=== PATIENT | female | born 2000 | race Caucasian/White ===

== ENCOUNTER → 2023-07-25 11:35 | Outpatient (CLI) | payer OTHER, SELFPAY ==
[2023-07-25 12:29] LABS: Add Manual Diff / Slide Review NO; Basophils Absolute Auto 0 /uL (0-100); Basophils Percent Auto 0.5 % (0-2); Eosinophils Absolute Auto 200 /uL (0-450); Eosinophils Percent Auto 3.1 % (2-4); Hematocrit 37.6 % (36-46); Hemoglobin 12.5 g/dL (12.0-16.0); Lymphocytes Absolute Auto 2400 /uL (1100-4500); Lymphocytes Percent Auto 33.1 % (25-40); Mean Corpuscular HGB Conc 33.2 % (30-36); Mean Corpuscular Hemoglobin 27.6 PG (26-34); Mean Corpuscular Volume 83.1 fL (80-100); Monocytes Absolute Auto 900 /uL (0-900); Monocytes Percent Auto 12.9 % (3-14); Neutrophils Absolute Auto 3600 /uL (1500-7000); Neutrophils Percent Auto 50.4 % (50-75); Platelet Count 230 X10^3/uL (150-400); Red Blood Cell Count 4.52 X10^6/uL (4.0-5.2); Red Cell Distribution Width 14.6 % (11.6-14.8); White Blood Cell Count 7.1 X10^3/uL (4.5-11.0)
[2023-07-25 12:52] LABS: Alanine Aminotransferase 13 IU/L (<35); Albumin 4.7 g/dL (3.5-5.0); Albumin Globulin Ratio 1.6 (1.0-2.8); Alkaline Phosphatase 50 U/L (38-126); Aspartate Aminotransferase 28 IU/L (14-36); Bilirubin Total 0.8 mg/dL (0.2-1.3); Blood Urea Nitrogen 11 mg/dL (7-17); Calcium 9.6 mg/dL (8.4-10.2); Carbon Dioxide 25 mmol/L (22-32); Chloride 106 mmol/L (98-107); Estimated Glomerular Filt Rate > 60 mL/min (>60); Globulin 2.9 g/dL (1.7-4.1); Glucose 93 mg/dL (70-100); HEMOLYSIS < 15 (0-50); Potassium 4.1 mmol/L (3.4-5.1); Sodium 137 mmol/L (137-145); Total Protein 7.6 g/dL (6.3-8.2)
[2023-07-25 12:53] LABS: HEMOLYSIS < 15 (0-50); Iron 124 ug/dL (37-170)
[2023-07-25 13:04] LABS: Percent Iron Saturation 29 % (15-50); Total Iron Binding Capacity 431 ug/dL (265-497); Transferrin 337 mg/dL (206-381)
[2023-07-25 13:25] LABS: TSH w/ Reflex to FT4 0.58 uIU/mL (0.47-4.68)
[2023-07-25 13:27] LABS: Ferritin 7 ng/mL (6-137)
[2023-07-25 13:59] LABS: Folate 15.7 ng/mL (2.76-20.0); Vitamin B12 859 pg/mL (239-931)
[2023-07-25 15:48] LABS: Vitamin D 25 Hydroxy (D3) 78.1 ng/mL (30.0-100.0)
== END ==
PROVIDERS: Family Provider Family Medicine; PCP Family Medicine; Referring Provider Family Medicine; Visit Provider Family Medicine
DX: R53.83 Other fatigue (principal); Z86.39 Personal history of other endocrine, nutritional and metabolic disease; Z78.9 Other specified health status; N94.2 Vaginismus; F32.9 Major depressive disorder, single episode, unspecified
CPT/HCPCS: 36415; 80053; 82306; 82607; 82728; 82746; 83540; 83550; 84443; 85025

== ENCOUNTER → 2023-09-30 16:47 | Outpatient (CLI) | payer OTHER, SELFPAY ==
[2023-09-30 18:37] LABS: Ferritin 15 ng/mL (6-137)
== END ==
PROVIDERS: Family Provider Family Medicine; PCP Family Medicine; Referring Provider Family Medicine; Visit Provider Family Medicine
DX: E61.1 Iron deficiency (principal)
CPT/HCPCS: 36415; 82728

== ENCOUNTER → 2024-01-13 15:03 | Outpatient (CLI) | payer BC, SELFPAY ==
[2024-01-13 16:32] LABS: HEMOLYSIS < 15 (0-50); Iron 109 ug/dL (37-170)
[2024-01-13 16:44] LABS: Percent Iron Saturation 38 % (15-50); Total Iron Binding Capacity 284 ug/dL (265-497); Transferrin 256 mg/dL (206-381)
[2024-01-13 16:56] LABS: Follicle Stimulating Hormone 3.29 mIU/mL; Luteinizing Hormone 6.67 mIU/mL
[2024-01-13 16:59] LABS: Prolactin 13.2 ng/mL (3.0-18.6)
[2024-01-13 17:17] LABS: Ferritin 32 ng/mL (6-137)
== END ==
LOC: LAB 15:04
PROVIDERS: Family Provider Family Medicine; PCP Family Medicine; Referring Provider Family Medicine; Visit Provider Family Medicine
DX: N94.6 Dysmenorrhea, unspecified (principal); F32.9 Major depressive disorder, single episode, unspecified; R53.83 Other fatigue; Z86.39 Personal history of other endocrine, nutritional and metabolic disease; Z78.9 Other specified health status
CPT/HCPCS: 82728; 83001; 83002; 83540; 83550; 84146

== ENCOUNTER 2024-03-20 13:05 | Emergency (ER) | payer OTHER, SELFPAY ==
[2024-03-20 13:22] VITALS: BP 94/58; PULSE 65; RESP 16; TEMP 36.6; O2SAT 99; BMI 18.4
--- NOTE | 2024-03-20 13:39 | ED_ITS ---
<Statement entered by Merrill Collado, - 03/20/24 17:26> Dr. Collado: I was immediately available in the department for consultation. I did not actually see the patient. HPI - Arrhythmia/Palpitations General Chief Complaint: Arrhythmia/Palpitations Stated Complaint: tightness in chest Time Seen by Provider: 03/20/24 13:36 History of Present Illness HPI narrative: Zoila Bowers is a pleasant 23-year-old female with a past medical history of iron deficiency, MDD, nocturnal panic attacks who presents to the emergency department for chest tightness since 3:00 a.m. this morning. Patient states she was awoken abruptly with sensation of chest tightness and occasional chest pains. States that she does have nocturnal panic attacks however they have never included chest pain. States that she tried to relax herself and went back to sleep however when she woke up again in the morning she still had lingering intermittent chest pains which prompted her to go to urgent care who then sent her to the emergency department for further evaluation. At this time patient states she is feeling very anxious about possible Emergency Department bills however she has not experiencing any shortness of breath or chest pain just a mild sensation of chest tightness. She denies a history of smoking, asthma, cardiac disease, venous thromboembolism, hormone use, blood thinner use, hemoptysis, cough, recent travel, leg swelling or pain. She does report that last week she had COVID and has continued to test positive on home tests. She has financial concerns and would like as limited workup as possible and no medications at this time. Related Data Previous Rx's Medication Instructions Recorded iron sucrose 200 mg iron/10 mL 200 mg (10 mL) IV Q3D 5 doses 01/14/24 intravenous solution (Venofer) Allergies Allergy/AdvReac Type Severity Reaction Status Date / Time No Known Drug Allergies Allergy Verified 01/13/24 14:33 Review of Systems Review of Systems ROS Unobtainable: All systems reviewed & are unremarkable except as noted in HPI and below Patient History Medical History Painful menstrual periods (~2016) Surgical History [place] teeth removed (~07/26/22) Family History Father Medical history unknown Mother Smoker Social History Smoking Status: Never smoker Smoking Status: Never smoker Exam Narrative Exam Narrative: GENERAL: 23 year old patient appears stated age. Well-developed patient, in no acute distress. HEAD: Atraumatic. Normocephalic. EYES: No scleral icterus. No injection or drainage. NECK: Trachea midline. Cervical ROM intact. CARDIOVASCULAR: Regular rate and rhythm. RESPIRATORY: ?Nonlabored respirations. ?Speaking in clear, full sentences. ?Clear to auscultation. Breath sounds equal bilaterally. No wheezes, rales, or rhonchi. ? GASTROINTESTINAL: Abdomen soft, non-tender, nondistended. EXTREMITIES: No edema or joint tenderness. NEURO: AOx3. ?Clear speech. ?Moves all 4 extremities appropriately. SKIN: No rash or erythema of visible areas Initial Vital Signs Initial Vital Signs: Vital Signs Temperature 97.9 F 03/20/24 13:22 Pulse Rate 65 03/20/24 13:22 Respiratory Rate 16 03/20/24 13:22 Blood Pressure 94/58 L 03/20/24 13:22 Pulse Oximetry 99 03/20/24 13:22 Oxygen Delivery Method Room Air 03/20/24 13:22 Scores HEART Score Heart Score history: Slightly Suspicious Heart Score EKG: Normal Heart Score Age: < 45 years old Heart Score risk factors: No known risk factors Heart Score troponin: < or = to normal limit Heart Score Total: 0 PERC Score Age greater than or equal to 50 years: No Heart rate greater than or equal to 100 bpm: No Room Air O2 Sat less than 95%: No Unilateral leg swelling: No Recent trauma or surgery: No Hemoptysis: No Prior PE or DVT: No Hormone Use: No Total PERC Score: 0 Course Orders Ordered: ED Orders 03/20/24 13:32 Complete Blood Count AUTO DIFF Stat Comprehensive Metabolic Panel Stat Troponin & CK Cardiac Panel Stat 03/20/24 13:52 XR chest 1V Stat 03/20/24 14:05 EKG-12 Lead Stat Vital Signs Vital signs: Vital Signs - 8 hr 03/20/24 13:22 03/20/24 15:58 Temperature 97.9 F 98.0 F Pulse Rate 65 54 L Respiratory Rate 16 18 Blood Pressure 94/58 L 96/60 Pulse Oximetry 99 99 Oxygen Delivery Method Room Air Room Air MDM - Arrhythmia/Palpitations Medical Records Attestation: I reviewed the patient's medical records. Lab Data 03/20/24 13:32 03/20/24 13:32 Labs: Lab Results 03/20/24 Range/Units 13:32 WBC 6.8 (4.5-11.0) X10^3/uL RBC 4.48 (4.0-5.2) X10^6/uL Hgb 13.1 (12.0-16.0) g/dL Hct 39.1 (36-46) % MCV 87.4 (80-100) fL MCH 29.2 (26-34) PG MCHC 33.4 (30-36) % RDW 13.1 (11.6-14.8) % Plt Count 281 (150-400) X10^3/uL Neut % (Auto) 58.1 (50-75) % Lymph % (Auto) 30.5 (25-40) % [place] % (Auto) 8.8 (3-14) % Eos % (Auto) 2.0 (2-4) % Baso % (Auto) 0.6 (0-2) % Neut # (Auto) 3900 (4785-9561) /uL Lymph # (Auto) 2100 (9816-5446) /uL [place]aves # (Auto) 600 (0-900) /uL Eos # (Auto) 100 (0-450) /uL Baso # (Auto) 0 (0-100) /uL Sodium 137 (137-145) mmol/L Potassium 3.8 (3.4-5.1) mmol/L Chloride 105 (98-107) mmol/L Carbon Dioxide 22 (22-32) mmol/L BUN 10 (7-17) mg/dL Creatinine 0.62 (0.52-1.04) mg/dL Estimated GFR > 60 (>60) mL/min BUN/Creatinine Ratio 16.1 (6-22) Glucose 86 (70-100) mg/dL Calcium 9.7 (8.4-10.2) mg/dL Total Bilirubin 0.8 (0.2-1.3) mg/dL AST 30 (14-36) IU/L ALT 17 (<35) IU/L Alkaline Phosphatase 46 (38-126) U/L Total Creatine Kinase 37 (30-135) U/L Troponin I < 0.012 (0.01-0.034) ng/mL Total Protein 7.5 (6.3-8.2) g/dL Albumin 4.7 (3.5-5.0) g/dL Globulin 2.8 (1.7-4.1) g/dL Albumin/Globulin Ratio 1.7 (1.0-2.8) Imaging Data Chest x-ray: Radiologist's Impresson: PROCEDURE: XR CHEST 1V INDICATIONS: chest tightness; has covid TECHNIQUE: One view of the chest was acquired. COMPARISON: None. FINDINGS: Surgical changes and devices: None. Lungs and pleura: Lungs are clear. No pleural effusions or pneumothorax. Mediastinum: Mediastinal contours appear normal. Heart size is normal. Bones and chest wall: No suspicious bony lesions. Overlying soft tissues appear unremarkable. IMPRESSION: No acute pulmonary process. MDM Narrative Medical decision making narrative: 23-year-old female with a past medical history of iron deficiency, MDD, nocturnal panic attacks who presents to the emergency department for chest tightness since 3:00 a.m. this morning. Differential diagnosis includes but is not limited to reactive airways disease, viral syndrome, pneumonia, myocarditis, PE, ACS, anxiety, panic disorder, etc. On exam the patient is in no acute distress, nontoxic appearing, vital signs appropriate for patient's age and body habitus. She is anxious at this time however states that she is anxious because of concern of finances. At this time she has not experiencing chest pain but does have very mild lingering chest tightness. Her lungs are clear to auscultation. She is PERC negative. She has not a smoker. She has having no abdominal pain nausea vomiting or tenderness. She is currently COVID positive. We will proceed with CBC, CMP, troponin, chest x-ray. She declines medication for anxiety or aspirin. ECG reveals regular rhythm, normal rate of 69 beats per minute. Prior record review reveals normal TSH 07/25/23 of 0.58. Labs revealed negative troponin. Normal WBC 6.8, hemoglobin 13.1, hematocrit 39.1, normal renal function. Negative chest x-ray. Patient's symptoms started at 3:00 a.m. last night, delta troponin not warranted, she is symptom free. Heart score 0. Discussed with the patient's symptoms could be related to COVID, anxiety, very important to follow up with PCP return to the ED for any new or worsening symptoms. She is very reassured by workup today. ED return precautions discussed, she is stable for discharge home. Discharge Plan Departure Patient Disposition: Home Clinical Impression: Chest tightness Instructions: DI for Atypical Chest Pain Activity Restrictions/Additional Instructions: Today, we completed a work up for chest tightness. Sometimes, we do not always find the cause for your symptoms in one ER visit. The findings on your exam today and on your blood work and/or imaging is reassuring. At this time, it is not 100% certain what is causing your symptoms, but we feel you can be discharged from the emergency department. It is possible this may worsen or you may get better. Please, if you get worse or your symptoms change, return to the emergency department. Please follow up with your primary care doctor within the next 2-3 days for ER follow-up. (If you do not have a PCP you can call [phone]. ?to schedule an appointment with an [facility] Primary Care Provider) IF YOU DEVELOP ANY NEW OR WORSENING SYMPTOMS, RETURN TO THE ER! Please read the attached instructions, they highlight more specific treatments and interventions for you at home. Thank you for letting me participate in your care, Christina Swann PA-C Prescriptions: No Action Venofer 200 mg iron/10 mL solution 200 mg IV Q3D Rx Instructions: administer over 30 mins Referrals: Rosibel Watts MD [Primary Care Provider] - Stand Alone Forms: Patient Portal/API/Survey
--- NOTE | 2024-03-20 13:52 | DI.RAD.S_ITS ---
PROCEDURE: XR CHEST 1V INDICATIONS: chest tightness; has covid TECHNIQUE: One view of the chest was acquired. COMPARISON: None. FINDINGS: Surgical changes and devices: None. Lungs and pleura: Lungs are clear. No pleural effusions or pneumothorax. Mediastinum: Mediastinal contours appear normal. Heart size is normal. Bones and chest wall: No suspicious bony lesions. Overlying soft tissues appear unremarkable. IMPRESSION: No acute pulmonary process. Dictated by: Bonnie Wright M.D. on 03/20/2024 at 14:54 Approved by: Bonnie Wright M.D. on 03/20/2024 at 14:55
[2024-03-20 14:00] LABS: Add Manual Diff / Slide Review NO; Basophils Absolute Auto 0 /uL (0-100); Basophils Percent Auto 0.6 % (0-2); Eosinophils Absolute Auto 100 /uL (0-450); Hematocrit 39.1 % (36-46); Hemoglobin 13.1 g/dL (12.0-16.0); Lymphocytes Absolute Auto 2100 /uL (1100-4500); Lymphocytes Percent Auto 30.5 % (25-40); Mean Corpuscular HGB Conc 33.4 % (30-36); Mean Corpuscular Hemoglobin 29.2 PG (26-34); Mean Corpuscular Volume 87.4 fL (80-100); Monocytes Absolute Auto 600 /uL (0-900); Monocytes Percent Auto 8.8 % (3-14); Neutrophils Absolute Auto 3900 /uL (1500-7000); Neutrophils Percent Auto 58.1 % (50-75); Platelet Count 281 X10^3/uL (150-400); Red Blood Cell Count 4.48 X10^6/uL (4.0-5.2); Red Cell Distribution Width 13.1 % (11.6-14.8); White Blood Cell Count 6.8 X10^3/uL (4.5-11.0)
--- NOTE | 2024-03-20 14:05 | EKG_ITS ---
[address] [address] Test Date: 2024-03-20 Pat Name: Zoila Bowers Department: Room: Gender: Female Workforce Management Manager: JERMAIN : 2000 Requested By: Order Number: [id number] Reading MD: Merrill Yancey Measurements Intervals [place] Rate: 69 P: 57 MS: 140 QRS: 87 QRSD: 88 T: 64 QT: 396 QTc: 424 Interpretive Statements Normal sinus rhythm with sinus arrhythmia Electronically Signed On 03-25-2024 23:42:02 PST by Merrill Yancey
[2024-03-20 14:06] LABS: Alanine Aminotransferase 17 IU/L (<35); Albumin 4.7 g/dL (3.5-5.0); Albumin Globulin Ratio 1.7 (1.0-2.8); Alkaline Phosphatase 46 U/L (38-126); Aspartate Aminotransferase 30 IU/L (14-36); BUN Creatinine Ratio 16.1 (6-22); Bilirubin Total 0.8 mg/dL (0.2-1.3); Blood Urea Nitrogen 10 mg/dL (7-17); Calcium 9.7 mg/dL (8.4-10.2); Carbon Dioxide 22 mmol/L (22-32); Chloride 105 mmol/L (98-107); Creatine Kinase 37 U/L (30-135); Estimated Glomerular Filt Rate > 60 mL/min (>60); Globulin 2.8 g/dL (1.7-4.1); Glucose 86 mg/dL (70-100); HEMOLYSIS < 15 (0-50); Potassium 3.8 mmol/L (3.4-5.1); Sodium 137 mmol/L (137-145); Total Protein 7.5 g/dL (6.3-8.2)
[2024-03-20 14:18] LABS: Troponin I < 0.012 ng/mL (0.01-0.034)
[2024-03-20 15:58] VITALS: BP 96/60; PULSE 54; RESP 18; TEMP 36.7; O2SAT 99
== END 2024-03-20 16:03 | disposition home or self-care (01) ==
PROVIDERS: Emergency Provider Physician Assistant; Family Provider Family Medicine; PCP Family Medicine
DX: R07.9 Chest pain, unspecified (principal); F41.9 Anxiety disorder, unspecified; U07.1 COVID-19; E61.1 Iron deficiency
CPT/HCPCS: 36415; 71045; 80053; 82550; 84484; 85025; 93005; 99284

== ENCOUNTER → 2024-04-10 09:44 | Outpatient (CLI) | payer OTHER, SELFPAY ==
[2024-04-10 10:47] LABS: Add Manual Diff / Slide Review NO; Basophils Absolute Auto 0 /uL (0-100); Basophils Percent Auto 0.4 % (0-2); Eosinophils Absolute Auto 200 /uL (0-450); Eosinophils Percent Auto 2.8 % (2-4); Hematocrit 37.6 % (36-46); Hemoglobin 12.7 g/dL (12.0-16.0); Lymphocytes Absolute Auto 1700 /uL (1100-4500); Lymphocytes Percent Auto 23.3 % (25-40); Mean Corpuscular HGB Conc 33.7 % (30-36); Mean Corpuscular Hemoglobin 29.1 PG (26-34); Mean Corpuscular Volume 86.4 fL (80-100); Monocytes Absolute Auto 600 /uL (0-900); Monocytes Percent Auto 8.1 % (3-14); Neutrophils Absolute Auto 4600 /uL (1500-7000); Neutrophils Percent Auto 65.4 % (50-75); Platelet Count 282 X10^3/uL (150-400); Red Blood Cell Count 4.35 X10^6/uL (4.0-5.2); Red Cell Distribution Width 12.8 % (11.6-14.8); White Blood Cell Count 7.1 X10^3/uL (4.5-11.0)
[2024-04-10 10:58] LABS: HEMOLYSIS < 15 (0-50); Iron 95 ug/dL (37-170)
[2024-04-10 11:05] LABS: Erythrocyte Sedimentation Rate 10 MM/HR (0-20)
[2024-04-10 11:06] LABS: Alanine Aminotransferase 16 IU/L (<35); Albumin 4.5 g/dL (3.5-5.0); Albumin Globulin Ratio 1.9 (1.0-2.8); Alkaline Phosphatase 48 U/L (38-126); Aspartate Aminotransferase 26 IU/L (14-36); BUN Creatinine Ratio 16.4 (6-22); Bilirubin Total 0.5 mg/dL (0.2-1.3); Blood Urea Nitrogen 11 mg/dL (7-17); C-Reactive Protein Quant < 0.5 mg/dL (<1.0); Carbon Dioxide 26 mmol/L (22-32); Chloride 103 mmol/L (98-107); Estimated Glomerular Filt Rate > 60 mL/min (>60); Globulin 2.4 g/dL (1.7-4.1); Glucose 83 mg/dL (70-100); HEMOLYSIS < 15 (0-50); Potassium 4.2 mmol/L (3.4-5.1); Sodium 138 mmol/L (137-145); Total Protein 6.9 g/dL (6.3-8.2)
[2024-04-10 11:10] LABS: Percent Iron Saturation 36 % (15-50); Total Iron Binding Capacity 262 ug/dL (265-497); Transferrin 231 mg/dL (206-381)
[2024-04-10 11:30] LABS: TSH w/ Reflex to FT4 0.65 uIU/mL (0.47-4.68)
[2024-04-10 11:34] LABS: Ferritin 31 ng/mL (6-137)
[2024-04-13 17:40] LABS: Deamidated Gliadin Ab IgA 4 units (0-19); Deamidated Gliadin Ab IgG 2 units (0-19); Immunoglobulin A,Qn 110 mg/dL (87-352); t-Transglutaminase IgA 2 U/mL (0-3)
== END ==
PROVIDERS: Family Provider Family Medicine; PCP Family Medicine; Referring Provider Family Medicine; Visit Provider Family Medicine
DX: R19.7 Diarrhea, unspecified (principal); R10.9 Unspecified abdominal pain; R19.4 Change in bowel habit; Z86.39 Personal history of other endocrine, nutritional and metabolic disease; R53.83 Other fatigue; Z78.9 Other specified health status
CPT/HCPCS: 36415; 80053; 82728; 82784; 83516; 83540; 83550; 84443; 85025; 85651; 86140

== ENCOUNTER → 2024-04-30 17:21 | Outpatient (CLI) | payer OTHER, SELFPAY | PROVIDERS: Family Provider Family Medicine; PCP Family Medicine; Referring Provider Family Medicine; Visit Provider Family Medicine | DX: R19.7 Diarrhea, unspecified (principal); R10.9 Unspecified abdominal pain; R19.4 Change in bowel habit; Z78.9 Other specified health status; Z86.39 Personal history of other endocrine, nutritional and metabolic disease; R53.83 Other fatigue | CPT/HCPCS: 83993; 87329 ==

== ENCOUNTER → 2024-07-24 12:13 | Outpatient (CLI) | payer OTHER, SELFPAY ==
[2024-07-24 13:30] LABS: Ferritin 90 ng/mL (6-137)
== END ==
PROVIDERS: PCP Family Medicine; Referring Provider Family Medicine; Visit Provider Family Medicine
DX: E61.1 Iron deficiency (principal); R10.32 Left lower quadrant pain; R19.7 Diarrhea, unspecified
CPT/HCPCS: 36415; 82728

== ENCOUNTER → 2024-07-28 07:56 | Outpatient (CLI) | payer OTHER, SELFPAY ==
--- NOTE | 2024-07-28 09:30 | DI.CT.S_ITS ---
PROCEDURE: CT ABDOMEN PELVIS W CON INDICATIONS: abdominal/pelvic pain TECHNIQUE: After the administration of intravenous contrast, axial sections acquired from the lung bases to the pubic symphysis. Coronal and sagittal reformats were performed. For radiation dose reduction, the following was used: automated exposure control, adjustment of mA and/or kV according to patient size. COMPARISON: None. FINDINGS: Image quality: Diagnostic. Lower Chest: No significant findings. ABDOMEN: Liver: No solid mass. Gallbladder: No radiopaque gallstones or wall thickening. Biliary ducts: No biliary dilation. Pancreas: Homogeneous enhancement without focal lesions or pancreatic ductal dilatation. No peripancreatic inflammation or organized fluid collections. Spleen: Size is within normal limits. Adrenal Glands: No adrenal nodules. Kidneys and Ureters: No hydronephrosis. No solid mass. No complex renal cystic lesion which requires follow up. Stomach and Bowel: Normal colonic caliber, without significant wall thickening. Large fecal burden seen throughout the colon. No abnormal wall thickening or pericolonic inflammation. There is also moderate fecalization of the distal small bowel. No evidence for abnormally dilated small bowel. Normal appendix. No mesenteric stranding. Peritoneum: No abnormal intraperitoneal fluid. No free air. Ventral Wall: There is a fat-containing umbilical hernia without acute inflammation. Abdominal Nodes: No retroperitoneal or mesenteric adenopathy by size criteria. Vessels: Aorta and inferior vena cava are normal in size. PELVIS: Pelvic Organs: Unremarkable. Bladder: No bladder wall thickening, accounting for underdistention. Pelvic Nodes: No enlarged lymph nodes. Miscellaneous: No inguinal hernias are seen. Bones: No aggressive osseous abnormality. Visualized osseous structures appear intact without acute fracture or focal destructive lesion. No acute compression fractures of the imaged spine. IMPRESSION: CT abdomen and pelvis without acute abnormalities. Large fecal burden seen throughout the colon without acute inflammatory changes. There is also moderate fecalization of distal small bowel suggestive of delayed transit without evidence for small bowel obstruction. Findings may be related to constipation. Normal appendix. Dictated by: Jim Collier M.D. on 07/28/2024 at 22:13 Approved by: Jim Collier M.D. on 07/28/2024 at 22:22
== END ==
PROVIDERS: PCP Family Medicine; Referring Provider Family Medicine; Visit Provider Family Medicine
DX: R10.32 Left lower quadrant pain (principal); K42.9 Umbilical hernia without obstruction or gangrene; R10.2 Pelvic and perineal pain
CPT/HCPCS: 74177; Q9967

== ENCOUNTER 2024-07-30 11:05 | Emergency (ER) | payer OTHER, SELFPAY ==
[2024-07-30 11:15] VITALS: BP 112/57; PULSE 58; RESP 16; TEMP 36.4; O2SAT 98; BMI 19.5
[2024-07-30] MEDS: MAG HYDROX/ALUMINUM/SIMETH SUS 20 ML, LIDOCAINE VISCOUS 2% 15 ML PO (12:20)
[2024-07-30] MEDS: ONDANSETRON 4 MG/2 ML INJ IV (12:20)
[2024-07-30 12:22] LABS: Add Manual Diff / Slide Review NO; Basophils Absolute Auto 100 /uL (0-100); Basophils Percent Auto 0.8 % (0-2); Eosinophils Absolute Auto 100 /uL (0-450); Eosinophils Percent Auto 0.9 % (2-4); Hematocrit 37.4 % (36-46); Hemoglobin 12.9 g/dL (12.0-16.0); Lymphocytes Absolute Auto 1700 /uL (1100-4500); Lymphocytes Percent Auto 25.2 % (25-40); Mean Corpuscular HGB Conc 34.6 % (30-36); Mean Corpuscular Hemoglobin 29.8 PG (26-34); Mean Corpuscular Volume 86.1 fL (80-100); Monocytes Absolute Auto 400 /uL (0-900); Monocytes Percent Auto 6.4 % (3-14); Neutrophils Absolute Auto 4500 /uL (1500-7000); Neutrophils Percent Auto 66.7 % (50-75); Platelet Count 252 X10^3/uL (150-400); Red Blood Cell Count 4.34 X10^6/uL (4.0-5.2); White Blood Cell Count 6.7 X10^3/uL (4.5-11.0)
--- NOTE | 2024-07-30 12:33 | ED_ITS ---
HPI - Abdominal Pain <Christina Swann PA-C - Last Filed: 07/30/24 13:39> General Chief Complaint: Abdominal Pain Stated Complaint: Sent from [facility] Stomach pain Time Seen by Provider: 07/30/24 11:35 Source: patient Mode of arrival: Ambulatory History of Present Illness HPI narrative: Ms. Zoila Bowers is a very pleasant 24-year-old female with a past medical history of iron deficiency, MDD, EMANUEL who presents to the emergency department for upper abdominal pain x1 month. Patient states for a little over a month she has been experiencing some sensation of bloating, upper abdominal pain, acid reflux type symptoms. She was also having some left lower quadrant abdominal pain a few days ago and had a CT scan ordered by her PCP that was performed 2 days ago. She initially went to the walk-in clinic but was sent to the ER for further evaluation. Describes epigastric abdominal pain that has actually resolved since being roomed in the ED. She has been using Tums to help with her symptoms. She is concerned for possible gastric ulcer and she does have a standing referral to GI at this time and she will follow up with them for endoscopy. She reports that she has been having mild nausea but no vomiting, diarrhea or constipation. She has been eating less and has noticed that she has been having smaller more formed bowel movements. No dysuria, she is currently on her menstrual cycle. No fevers or chills. No URI type symptoms. No black or bloody stools. No regular NSAID use. Symptoms are exacerbated by lying flat. Related Data Previous Rx's ?Medication ?Instructions ?Recorded pantoprazole 20 mg tablet,delayed 20 mg PO DAILY 30 da #30 tabs 07/30/24 release polyethylene glycol 3350 17 17 g PO DAILY 30 days #119 grams 07/30/24 gram/dose oral powder (Miralax) Allergies Allergy/AdvReac Type Severity Reaction Status Date / Time No Known Drug Allergies Allergy Verified 08/05/24 15:06 Review of Systems <Christina Swann PA-C - Last Filed: 07/30/24 13:39> Review of Systems ROS Unobtainable: All systems reviewed & are unremarkable except as noted in HPI and below Patient History <Christina Swann PA-C - Last Filed: 07/30/24 13:39> Medical History Painful menstrual periods (~2017) Surgical History [place] teeth removed (~07/26/22) Family History Father Medical history unknown Mother Smoker Social History Smoking Status: Never smoker Smoking Status: Never smoker Exam <Christina Swann PA-C - Last Filed: 07/30/24 13:39> Narrative Exam Narrative: GENERAL: 24 year old patient appears stated age. Well-developed patient, in no acute distress. HEAD: Atraumatic. Normocephalic. NECK: Trachea midline. Cervical ROM intact. CARDIOVASCULAR: Regular rate and rhythm. RESPIRATORY: ?Nonlabored respirations. ?Speaking in clear, full sentences. ?Clear to auscultation. Breath sounds equal bilaterally. No wheezes, rales, or rhonchi. ? GASTROINTESTINAL: Abdomen soft, non-tender, nondistended. BS present. EXTREMITIES: No edema NEURO: AOx3. ?Clear speech. ?Moves all 4 extremities appropriately. SKIN: No rash or erythema of visible areas Initial Vital Signs Initial Vital Signs: Vital Signs Temperature 97.6 F 07/30/24 11:15 Pulse Rate 58 L 07/30/24 11:15 Respiratory Rate 16 07/30/24 11:15 Blood Pressure 112/57 L 07/30/24 11:15 Pulse Oximetry 98 07/30/24 11:15 Oxygen Delivery Method Room Air 07/30/24 11:15 <Edda Valdovinos DO - Last Filed: 08/10/24 07:39> Initial Vital Signs Initial Vital Signs: Vital Signs Temperature 97.6 F 07/30/24 11:15 Pulse Rate 58 L 07/30/24 11:15 Respiratory Rate 16 07/30/24 11:15 Blood Pressure 112/57 L 07/30/24 11:15 Pulse Oximetry 98 07/30/24 11:15 Oxygen Delivery Method Room Air 07/30/24 11:15 Course <Christina Swann PA-C - Last Filed: 07/30/24 13:39> Orders Ordered: Discontinued Medications Al Hydrox/Mg Hydrox/Simethicone 20 ml/ Lidocaine HCl 15 ml 0 ml PO NOW ONE Stop: 07/30/24 11:40 Last Admin: 07/30/24 12:20 Dose: 35 ml Documented By: ELIZABETH Ondansetron HCl (Ondansetron 4 Mg/2 Ml Inj) 4 mg IV NOW ONE Stop: 07/30/24 11:40 Last Admin: 07/30/24 12:20 Dose: 4 mg Documented By: ELIZABETH Vital Signs Vital signs: Vital Signs - 8 hr 07/30/24 11:15 Temperature 97.6 F Pulse Rate 58 L Respiratory Rate 16 Blood Pressure 112/57 L Pulse Oximetry 98 Oxygen Delivery Method Room Air <Edda Valdovinos DO - Last Filed: 08/10/24 07:39> Orders Ordered: Discontinued Medications Al Hydrox/Mg Hydrox/Simethicone 20 ml/ Lidocaine HCl 15 ml 0 ml PO NOW ONE Stop: 07/30/24 11:40 Last Admin: 07/30/24 12:20 Dose: 35 ml Documented By: ELIZABETH Ondansetron HCl (Ondansetron 4 Mg/2 Ml Inj) 4 mg IV NOW ONE Stop: 07/30/24 11:40 Last Admin: 07/30/24 12:20 Dose: 4 mg Documented By: ELIZABETH Vital Signs Vital signs: Vital Signs - 8 hr 07/30/24 11:15 Temperature 97.6 F Pulse Rate 58 L Respiratory Rate 16 Blood Pressure 112/57 L Pulse Oximetry 98 Oxygen Delivery Method Room Air MDM - Abdominal Pain <Christina Swann PA-C - Last Filed: 07/30/24 13:39> Medical Records Attestation: I reviewed the patient's medical records. Lab Data 07/30/24 12:07 07/30/24 12:07 Labs: Lab Results 07/30/24 Range/Units 12:07 WBC 6.7 (4.5-11.0) X10^3/uL RBC 4.34 (4.0-5.2) X10^6/uL Hgb 12.9 (12.0-16.0) g/dL Hct 37.4 (36-46) % MCV 86.1 (80-100) fL MCH 29.8 (26-34) PG MCHC 34.6 (30-36) % RDW 13.0 (11.6-14.8) % Plt Count 252 (150-400) X10^3/uL Neut % (Auto) 66.7 (50-75) % Lymph % (Auto) 25.2 (25-40) % Whitfield % (Auto) 6.4 (3-14) % Eos % (Auto) 0.9 L (2-4) % Baso % (Auto) 0.8 (0-2) % Neut # (Auto) 4500 (1558-6953) /uL Lymph # (Auto) 1700 (1215-9439) /uL Whitfield # (Auto) 400 (0-900) /uL Eos # (Auto) 100 (0-450) /uL Baso # (Auto) 100 (0-100) /uL Sodium 140 (137-145) mmol/L Potassium 3.8 (3.4-5.1) mmol/L Chloride 106 (98-107) mmol/L Carbon Dioxide 24 (22-32) mmol/L BUN 6 L (7-17) mg/dL Creatinine 0.61 (0.52-1.04) mg/dL Estimated GFR > 60 (>60) mL/min BUN/Creatinine Ratio 9.8 (6-22) Glucose 98 (70-99) mg/dL Calcium 10.3 H (8.4-10.2) mg/dL Total Bilirubin 0.8 (0.2-1.3) mg/dL AST 24 (14-36) IU/L ALT 13 (<35) IU/L Alkaline Phosphatase 44 (38-126) U/L Total Protein 7.2 (6.3-8.2) g/dL Albumin 4.5 (3.5-5.0) g/dL Globulin 2.7 (1.7-4.1) g/dL Albumin/Globulin Ratio 1.7 (1.0-2.8) Lipase 41 (23-300) U/L Urine RBC 0-1/hpf (0-5/HPF) Urine WBC None seen (0-5/HPF) Ur Squamous Epith Cells 1-5 /hpf (0-5/HPF) Urine Bacteria Moderate (10-30) H (None) Ur Culture Indicated? Cult not indicated Vol Urine Centrifuged 10ml (spun) Point of care testing: Point of Care Testing Test Results Negative Urine Dip Bedside Urine Glucose Negative Bedside Urine Bilirubin - Negative Bedside Urine Ketone - Negative Urine Specific Foster 1.005 Bedside Urine Occult Blood ++ Bedside Urine pH 8.5 Bedside Urine Protein - Negative Bedside Urine Urobilinogen - Negative Bedside Urine Nitrite - Negative Bedside Urine Leukocytes - Negative Esterase MDM Narrative Medical decision making narrative: 24-year-old female (prefer they/them pronouns) with a past medical history of iron deficiency, MDD, EMANUEL who presents to the emergency department for upper abdominal pain x1 month. Differential diagnosis includes but is not limited to GERD, esophagitis, gastritis, peptic ulcer disease, H pylori, constipation, pancreatitis, cholecystitis, etc. On exam the patient is in no acute distress, nontoxic appearing, vital signs appropriate. Abdominal exam benign. CT abdomen and pelvis reviewed from 2 days ago revealing no acute abnormalities, she does have a large fecal burden throughout the colon without inflammatory changes, there is moderate fecalization of distal small bowel suggestive of delayed transit. We will obtain CBC, CMP, lipase. Treat patient with a GI cocktail and Zofran. Labs reassuring with normal WBC count 6.7, hemoglobin 12.9, hematocrit 37.4. Normal electrolytes sodium 140, potassium 3.8. Good renal function BUN 6 creatinine 0.61. Glucose 98. Calcium slightly elevated at 10.3. Normal lipase and liver enzymes. UA with signs of contamination, patient currently on the end of her menstrual cycle, not having any urinary symptoms. Discussed with the patient concern for acid reflux versus H pylori versus gastritis versus other. They are scheduled to follow up with GI with plans for endoscopy. In the meantime recommended MiraLax to help with large fecal burden in addition to Protonix in the mornings. Tums as needed. Discussed strict ED return precautions. Patient verbalized understanding of all information and agreeable to the plan, they are stable for discharge home. <Edda Valdovinos, DO - Last Filed: 08/10/24 07:39> Lab Data Labs: Lab Results 07/30/24 Range/Units 12:07 WBC 6.7 (4.5-11.0) X10^3/uL RBC 4.34 (4.0-5.2) X10^6/uL Hgb 12.9 (12.0-16.0) g/dL Hct 37.4 (36-46) % MCV 86.1 (80-100) fL MCH 29.8 (26-34) PG MCHC 34.6 (30-36) % RDW 13.0 (11.6-14.8) % Plt Count 252 (150-400) X10^3/uL Neut % (Auto) 66.7 (50-75) % Lymph % (Auto) 25.2 (25-40) % Whitfield % (Auto) 6.4 (3-14) % Eos % (Auto) 0.9 L (2-4) % Baso % (Auto) 0.8 (0-2) % Neut # (Auto) 4500 (4144-1306) /uL Lymph # (Auto) 1700 (3187-3750) /uL Whitfield # (Auto) 400 (0-900) /uL Eos # (Auto) 100 (0-450) /uL Baso # (Auto) 100 (0-100) /uL Sodium 140 (137-145) mmol/L Potassium 3.8 (3.4-5.1) mmol/L Chloride 106 (98-107) mmol/L Carbon Dioxide 24 (22-32) mmol/L BUN 6 L (7-17) mg/dL Creatinine 0.61 (0.52-1.04) mg/dL Estimated GFR > 60 (>60) mL/min BUN/Creatinine Ratio 9.8 (6-22) Glucose 98 (70-99) mg/dL Calcium 10.3 H (8.4-10.2) mg/dL Total Bilirubin 0.8 (0.2-1.3) mg/dL AST 24 (14-36) IU/L ALT 13 (<35) IU/L Alkaline Phosphatase 44 (38-126) U/L Total Protein 7.2 (6.3-8.2) g/dL Albumin 4.5 (3.5-5.0) g/dL Globulin 2.7 (1.7-4.1) g/dL Albumin/Globulin Ratio 1.7 (1.0-2.8) Lipase 41 (23-300) U/L Urine RBC 0-1/hpf (0-5/HPF) Urine WBC None seen (0-5/HPF) Ur Squamous Epith Cells 1-5 /hpf (0-5/HPF) Urine Bacteria Moderate (10-30) H (None) Ur Culture Indicated? Cult not indicated Vol Urine Centrifuged 10ml (spun) Point of care testing: Point of Care Testing Test Results Negative Urine Dip Bedside Urine Glucose Negative Bedside Urine Bilirubin - Negative Bedside Urine Ketone - Negative Urine Specific Foster 1.005 Bedside Urine Occult Blood ++ Bedside Urine pH 8.5 Bedside Urine Protein - Negative Bedside Urine Urobilinogen - Negative Bedside Urine Nitrite - Negative Bedside Urine Leukocytes - Negative Esterase Discharge Plan Departure Patient Disposition: Home Clinical Impression: Epigastric abdominal pain Acid reflux Qualifiers: Esophagitis presence: esophagitis presence not specified Qualified Code(s): K 21.9 - Gastro-esophageal reflux disease without esophagitis Constipation Qualifiers: Constipation type: unspecified constipation type Qualified Code(s): K59.00 - Constipation, unspecified Instructions: DI for Gastroesophageal Reflux Disease (GERD) Activity Restrictions/Additional Instructions: Dear Zoila, The you for coming to the emergency department. Today you were evaluated for abdominal pain associated with acid reflux type symptoms. Your lab work was very reassuring. We discussed your CT results which did show a large amount of stool throughout the colon, I would like you to start taking MiraLax daily and increase hydration to allow the passing of increased bowel movements. I have also prescribed Protonix to start taking to potentially help with acid reflux type symptoms. Continue using Tums as needed. Reducing spicy and acidic foods such as caffeine can help improve symptoms. Avoid eating about 1 hour before bed to prevent worsening symptoms when you lie flat at night. Please follow up as soon as possible with your primary and a GI doctor for further evaluation as you would benefit from endoscopy. Please return to the emergency department if you develop any new or worsening symptoms such as black or bloody stools, severe pain, fevers, persistent vomiting or other concerns. Please follow up with your primary care doctor within the next 2-3 days for ER follow-up. (If you do not have a PCP you can call [phone]. ?to schedule an appointment with an [facility] Primary Care Provider) IF YOU DEVELOP ANY NEW OR WORSENING SYMPTOMS, RETURN TO THE ER! Please read the attached instructions, they highlight more specific treatments and interventions for you at home. Thank you for letting me participate in your care, Christina Swann PA-C Prescriptions: New pantoprazole 20 mg tablet,delayed release (DR/EC) 20 mg PO DAILY 30 Days Qty: 30 0RF polyethylene glycol 3350 [Miralax] 17 gram/dose powder 17 g PO DAILY 30 Days Qty: 119 0RF Referrals: Rosibel Watts MD [Primary Care Provider, Family Practice] Stand Alone Forms: Patient Portal/API ED Sign-out <Edda Valdovinos, - Last Filed: 08/10/24 07:39> Cosign ED Attending Cosignature Attestation: I was immediately available in the department for consultation.
[2024-07-30 12:47] LABS: Bacteria Urine Moderate (10-30); Culture Indicated Urine Cult Not Indicated; RBC Urine 0-1/HPF (0-5/HPF); Squamous Epithelial Cell Urine 1-5 /HPF (0-5/HPF); Urine Volume 10mL (spun); WBC Urine None Seen (0-5/HPF)
[2024-07-30 12:55] LABS: Alanine Aminotransferase 13 IU/L (<35); Albumin 4.5 g/dL (3.5-5.0); Albumin Globulin Ratio 1.7 (1.0-2.8); Alkaline Phosphatase 44 U/L (38-126); Aspartate Aminotransferase 24 IU/L (14-36); BUN Creatinine Ratio 9.8 (6-22); Bilirubin Total 0.8 mg/dL (0.2-1.3); Blood Urea Nitrogen 6 mg/dL (7-17); Calcium 10.3 mg/dL (8.4-10.2); Carbon Dioxide 24 mmol/L (22-32); Chloride 106 mmol/L (98-107); Estimated Glomerular Filt Rate > 60 mL/min (>60); Globulin 2.7 g/dL (1.7-4.1); Glucose 98 mg/dL (70-99); HEMOLYSIS < 15 (0-50); Lipase 41 U/L (23-300); Potassium 3.8 mmol/L (3.4-5.1); Sodium 140 mmol/L (137-145); Total Protein 7.2 g/dL (6.3-8.2)
[2024-07-30 13:55] VITALS: BP 110/54; PULSE 57; RESP 16; O2SAT 99
== END 2024-07-30 13:56 | disposition home or self-care (01) ==
PROVIDERS: Emergency Provider Physician Assistant; PCP Family Medicine
DX: R10.13 Epigastric pain (principal); K21.9 Gastro-esophageal reflux disease without esophagitis; K59.00 Constipation, unspecified
CPT/HCPCS: 36415; 80053; 81003; 81015; 81025; 83690; 85025; 87086; 87147; 96374; 99284; J2405

== ENCOUNTER → 2024-09-01 08:07 | Outpatient (CLI) | payer OTHER, SELFPAY ==
--- NOTE | 2024-09-01 08:08 | DI.US.S_ITS ---
PROCEDURE: US ABDOMEN LIMITED INDICATIONS: epigastric pain, nausea, r/o cholecystitis TECHNIQUE: Real-time scanning was performed of the abdominal and retroperitoneal organs, with image documentation. COMPARISON: None. FINDINGS: Liver: Liver is normal in size and homogeneous in echotexture. There is increased hepatic echogenicity. Gallbladder: No gallstones identified. Normal gallbladder wall thickness. No pericholecystic fluid. Negative sonographic Castano sign. Biliary ducts: Intrahepatic bile ducts are non-dilated. Extrahepatic bile duct caliber measures 5.5 mm. Normal is 6-7 mm or less in diameter, or 10 mm or less post-cholecystectomy. Pancreas: Visualized portions of the pancreas are sonographically normal. IMPRESSION: Increased hepatic echogenicity can be seen in the setting of hepatic steatosis. Recommend clinical correlation. No cholelithiasis or sonographic evidence of acute cholecystitis. Approved by: Victorina Ott M.D.,Ph.D. on 09/01/2024 at 12:59
== END ==
PROVIDERS: PCP Family Medicine; Referring Provider Family Medicine; Visit Provider Surgery
DX: R10.13 Epigastric pain (principal)
CPT/HCPCS: 76705

== ENCOUNTER → 2024-12-16 14:50 | Outpatient (CLI) | payer OTHER, SELFPAY ==
[2024-12-16 16:03] LABS: Add Manual Diff / Slide Review NO; Hematocrit 38.1 % (36-46); Hemoglobin 12.9 g/dL (12.0-16.0); Lymphocytes Absolute Auto 1900 /uL (1100-4500); Mean Corpuscular HGB Conc 33.8 % (30-36); Mean Corpuscular Hemoglobin 28.6 PG (26-34); Mean Corpuscular Volume 84.6 fL (80-100); Platelet Count 229 X10^3/uL (150-400)
[2024-12-16 16:32] LABS: Iron 106 ug/dL (37-170)
[2024-12-16 16:34] LABS: Alanine Aminotransferase 15 IU/L (<35); Albumin 4.8 g/dL (3.5-5.0); Albumin Globulin Ratio 1.9 (1.0-2.8); Alkaline Phosphatase 54 U/L (38-126); Blood Urea Nitrogen 13 mg/dL (7-17); Calcium 9.6 mg/dL (8.4-10.2); Carbon Dioxide 25 mmol/L (22-32); Chloride 101 mmol/L (98-107); Estimated Glomerular Filt Rate > 60 mL/min (>60); Globulin 2.5 g/dL (1.7-4.1); Glucose 102 mg/dL (70-99); HEMOLYSIS < 15 (0-50); Potassium 3.8 mmol/L (3.4-5.1); Sodium 137 mmol/L (137-145); Total Protein 7.3 g/dL (6.3-8.2)
[2024-12-16 17:09] LABS: Ferritin 72 ng/mL (6-137)
== END ==
PROVIDERS: PCP Family Medicine; Referring Provider Family Medicine; Visit Provider Family Medicine
DX: E61.1 Iron deficiency (principal); K29.70 Gastritis, unspecified, without bleeding; F41.1 Generalized anxiety disorder
CPT/HCPCS: 36415; 80053; 82728; 83540; 85025